=== PATIENT | female | born 1945 | race Caucasian/White ===

== ENCOUNTER 2023-08-02 08:43 | Day surgery (SDC) | payer OTHER ==
[~2023-08-02] VITALS: Ht 160 cm; Wt 79.2 kg
[~2023-08-02 08:43] MED LIST: Balanced Salt Epinephrine Irrigation Solution 500 mL IR SCH; Lidocaine HCl/Pf 1% 5 ML VIAL XX SCH; Moxifloxacin HCL 0.5 MG/0.1 ML 0.4MLSYR RIGHTEYE SCH; NS 500 ML IV ONE; PHENYLEPHRINE\\TROPICAMIDE\\TETRACAINE OPHTHALMIC DILATING SOLN RIGHTEYE PRN; Povidone-Iodine 450 DROP/30 ML Solution ONE; Povidone-Iodine 450 DROP/30 ML Solution RIGHTEYE SCH; Triamcinolone Inj Susp 40 MG / ML 1ML Vial INJ SCH; Triamcinolone Inj Susp 40 MG / ML 1ML Vial ONE
[2023-08-02] MEDS ORDERED: Dexamethasone Sod Phos 10 MG/ML 1ML VIAL ONE (09:11)
[2023-08-02] MEDS ORDERED: FentaNYL Citrate 50 MCG/ML 2 ML Injection ONE (09:11)
[2023-08-02] MEDS ORDERED: Ondansetron HCl 2 MG / ML 2ML Vial ONE (09:11)
[2023-08-02] MEDS ORDERED: Midazolam HCl 1MG / ML 2ML Vial ONE (09:11)
[2023-08-02] MEDS ORDERED: GLUC500 (09:13)
[2023-08-02] MEDS ORDERED: VITAMIN B12500 MCG (09:14)
[2023-08-02] MEDS ORDERED: MAGNESIUM OXID500 MG (09:14)
[2023-08-02] MEDS ORDERED: VITAMIN D310 MC4 (09:14)
[2023-08-02] MEDS ORDERED: IBUP400 (09:15)
[2023-08-02] MEDS ORDERED: NS 1,000 ML IV ONE (09:27)
[2023-08-02] MEDS ORDERED: Tetracaine HCl 0.5% Opth Soln 15 ml RIGHTEYE ONE (10:16)
--- NOTE | 2023-08-02 11:32 | NUR ---
08/02/[address] CONSULTED REGARDING B/P AND HEART RATE. HE APPROVED D/C. PT DENIED CARDIAC AND RESPIRATORY SYMPTOMS--INCLUDING CP, WEAKNESS, NAUSEA, DIZZINESS, FACIAL ASYMETRY, AND SOB--AND NONE WERE OBSERVED. SHE WAS INSTRUCTED SEVERAL TIMES TO MONITOR B/P AT HOME AND FOLLOW UP WITH PCP IMMEDIATELY. SHE WAS INSTRUCTED TO SEEK EMERGENCY MEDICAL CARE IMMEDIATELY IS SHE EXPERIENCES ANY OF THE ABOVE SYMPTOMS.
== END 2023-08-02 11:18 | disposition home or self-care (01) ==
LOC: ORSCSDS 08:43
PROVIDERS: Ophthalmology
PROC: 08RJ3JZ Replacement of Right Lens with Synthetic Substitute, Percutaneous Approach (ICD-10-PCS; principal; 2023-08-02 10:00)
DX: H25.13 Age-related nuclear cataract, bilateral (principal)
CPT/HCPCS: J1100; J2250; J2405; J3010; J3301; J7040; V2632

== ENCOUNTER 2023-08-07 08:53 | Day surgery (SDC) | payer OTHER ==
[~2023-08-07] VITALS: Ht 160 cm; Wt 78.4 kg
[~2023-08-07 08:53] MED LIST changes: +GLUC500; +IBUP400; +MAGNESIUM OXID500 MG; +Moxifloxacin HCL 0.5 MG/0.1 ML 0.4MLSYR LEFTEYE SCH; -Moxifloxacin HCL 0.5 MG/0.1 ML 0.4MLSYR RIGHTEYE SCH; +NS 500 ML ONE; +PHENYLEPHRINE\\TROPICAMIDE\\TETRACAINE OPHTHALMIC DILATING SOLN LEFTEYE PRN; -PHENYLEPHRINE\\TROPICAMIDE\\TETRACAINE OPHTHALMIC DILATING SOLN RIGHTEYE PRN; +Povidone-Iodine 450 DROP/30 ML Solution LEFTEYE SCH; -Povidone-Iodine 450 DROP/30 ML Solution ONE; -Povidone-Iodine 450 DROP/30 ML Solution RIGHTEYE SCH; +VITAMIN B12500 MCG; +VITAMIN D310 MC4
[2023-08-07] MEDS ORDERED: NS 500 ML IV ONE (09:07)
--- NOTE | 2023-08-07 09:10 | NUR ---
08/07/23 0910 Grecia Iniguez CALL LIGHT WITHIN REACH. TETRACAINE IN LEFT EYE AT 0908 AND PLEDGETT IN AT 0910
[2023-08-07] MEDS ORDERED: FentaNYL Citrate 50 MCG/ML 2 ML Injection ONE (09:23)
[2023-08-07] MEDS ORDERED: Midazolam HCl 1MG / ML 2ML Vial ONE (09:23)
[2023-08-07] MEDS ORDERED: Esmolol HCL 10 MG/ML 10ML VIAL ONE (09:45)
[2023-08-07] MEDS ORDERED: Tetracaine HCl 0.5% Opth Soln 15 ml LEFTEYE ONE (09:47)
== END 2023-08-07 10:20 | disposition home or self-care (01) ==
LOC: ORSCSDS 08:53
PROVIDERS: Ophthalmology
PROC: 08RK3JZ Replacement of Left Lens with Synthetic Substitute, Percutaneous Approach (ICD-10-PCS; principal; 2023-08-07 10:00)
DX: H25.812 Combined forms of age-related cataract, left eye (principal); Z96.1 Presence of intraocular lens; I10 Essential (primary) hypertension
CPT/HCPCS: J2250; J3010; J3301; J7040; V2632